=== PATIENT | female | born 1930 | race Caucasian/White ===

== ENCOUNTER 2017-04-29 09:12 | Inpatient (IN) | payer OTHER, MEDICARE ==
[~2017-04-29] VITALS: Ht 167.6 cm; Wt 57.8 kg
[2017-04-29 09:48] LABS: BASOPHIL COUNT 0.1 K/uL (0-0.1); EOSINOPHIL (%) 1.5 % (0-5); EOSINOPHIL COUNT 0.1 K/uL (0-0.3); HEMATOCRIT 38.7 % (36.0-46.0); IMMATURE GRANULOCYTE (%) 0.5 % (0.0-0.7); IMMATURE GRANULOCYTE COUNT 0.1 K/uL; INSTRUMENT ABS NEUTROPHIL CT 6.7 K/uL; LYMPHOCYTE COUNT 1.3 K/uL (1.0-2.8); MCH 31.1 PG (29.0-34.0); MCHC 33.1 G/DL (30.0-36.0); MCV 94.2 FL (83-99); MEAN PLAT.VOLUME 9.4 uM^3 (9.5-12.4); MONOCYTE (%) 9.8 % (3-12); MONOCYTE COUNT 0.9 K/uL (0-0.8); NEUTROPHIL (%) 73.1 % (45-76); NEUTROPHIL COUNT 6.7 K/uL (1.8-6.4); PLATELET COUNT 246 K/uL (156-360); RBC DIS.WIDTH-SD 41.9 % (39-53); RED BLOOD COUNT 4.11 M/uL (3.80-5.20); WHITE BLOOD COUNT 9.2 K/uL (4.1-10.2)
[2017-04-29 10:00] LABS: CHLORIDE 104 mEq/L (99-109); POTASSIUM 3.7 mEq/L (3.7-5.4); SODIUM 136 mEq/L (136-147)
[2017-04-29 10:02] LABS: GLUCOSE 111 mg/dL (70-99)
[2017-04-29 10:03] LABS: ANION GAP 8 MEQ/L (2-14)
[2017-04-29 10:06] LABS: GFR ESTIMATE (CALCULATED) > 59 mL/min/; UREA NITROGEN (BUN) 11 mg/dL (9-23)
[2017-04-29 10:13] LABS: TROP-I INTERPRETATION NEGATIVE; TROPONIN-I < 0.01 ng/mL (0.0-0.30)
[2017-04-29] MEDS ORDERED: NOLVADEX20 MG PO (14:00)
[2017-04-29] MEDS ORDERED: COZAAR50 MG PO (14:01)
[2017-04-29] MEDS ORDERED: ZOCOR40 MG PO (14:01)
[2017-04-29] MEDS ORDERED: FOSAMAX70 MG PO (14:01)
[2017-04-29] MEDS ORDERED: VITAMIN D31000 UNI2 PO (14:02)
[2017-04-29] MEDS ORDERED: CALCIUM 600 +1 EA11 PO (14:02)
[2017-04-29] MEDS ORDERED: ALDACTONE25 MG PO (14:03)
[2017-04-29 14:26] VITALS: BP 138/63
[2017-04-29 19:24] VITALS: BP 126/60
[2017-04-29 19:47] LABS: MCH 31.8 PG (29.0-34.0); MCHC 33.4 G/DL (30.0-36.0); MCV 95.2 FL (83-99); MEAN PLAT.VOLUME 9.3 uM^3 (9.5-12.4); PLATELET COUNT 223 K/uL (156-360); RBC DIS.WIDTH-CV 12.1 % (11.8-14.6); RED BLOOD COUNT 3.36 M/uL (3.80-5.20); WHITE BLOOD COUNT 15.1 K/uL (4.1-10.2)
[2017-04-29 23:55] VITALS: BP 103/57
[2017-04-30 03:40] VITALS: BP 101/49
[2017-04-30 06:34] LABS: HEMATOCRIT 26.8 % (36.0-46.0); MCV 93.7 FL (83-99)
[2017-04-30 07:01] LABS: ANION GAP 6 MEQ/L (2-14); CHLORIDE 104 MEQ/L (99-109); GFR ESTIMATE (CALCULATED) > 59 mL/min/; GLUCOSE 103 mg/dL (70-99); SAMPLE HEMOLYSIS CHECK 0; SAMPLE ICTERIC CHECK 0; SAMPLE LIPEMIA CHECK 0; SODIUM 132 MEQ/L (136-147); UREA NITROGEN (BUN) 9 mg/dL (9-23)
[2017-04-30 07:52] VITALS: BP 123/56
[2017-04-30 11:54] VITALS: BP 121/60
[2017-04-30 16:17] VITALS: BP 101/70
[2017-04-30 20:28] VITALS: BP 120/57
[2017-05-01 00:21] VITALS: BP 112/53
[2017-05-01 03:39] VITALS: BP 115/51
[2017-05-01 06:49] LABS: HEMATOCRIT 26.5 % (36.0-46.0); MCH 31.8 PG (29.0-34.0); MCV 93.6 FL (83-99); PLATELET COUNT 194 K/uL (156-360); RBC DIS.WIDTH-CV 12.2 % (11.8-14.6); RBC DIS.WIDTH-SD 42.2 % (39-53); RED BLOOD COUNT 2.83 M/uL (3.80-5.20)
[2017-05-01 07:09] LABS: ANION GAP 7 MEQ/L (2-14); CHLORIDE 99 MEQ/L (99-109); GFR ESTIMATE (CALCULATED) > 59 mL/min/; GLUCOSE 102 mg/dL (70-99); POTASSIUM 3.7 MEQ/L (3.7-5.4); SAMPLE HEMOLYSIS CHECK 0; SAMPLE ICTERIC CHECK 0; SAMPLE LIPEMIA CHECK 0; SODIUM 130 MEQ/L (136-147); UREA NITROGEN (BUN) 7 mg/dL (9-23)
[2017-05-01 07:38] VITALS: BP 119/58
[2017-05-01] MEDS ORDERED: THERAGRAN1 TABLET PO (08:55)
[2017-05-01] MEDS ORDERED: HYDROCODON-ACE1 EAC7 PO (09:03)
[2017-05-01] MEDS ORDERED: PRAVACHOL80 MG PO (13:36)
[2017-05-01] MEDS ORDERED: SENNA-DOCUSATE1 EAC1 PO (13:38)
[2017-05-01] MEDS ORDERED: LOVENOX40 MG/0.4 SC (13:39)
[2017-05-01] MEDS ORDERED: PERCOCET 10/1 TABLET PO (13:40)
== END 2017-05-01 11:30 | DRG 481 ==
LOC: EME 09:12 → 3EAST 13:25 → EDOF 13:25 → ENRESERV 13:38 → 3EAST 14:07
PROVIDERS: Emergency Medicine; Hospitalist; Orthopaedic Surgery
PROC: 0QS736Z Reposition Left Upper Femur with Intramedullary Internal Fixation Device, Percutaneous Approach (ICD-10-PCS; principal; 2017-04-29)
DX: S72.142A Displaced intertrochanteric fracture of left femur, initial encounter for closed fracture (principal); E87.2 Acidosis; E86.0 Dehydration; C50.919 Malignant neoplasm of unspecified site of unspecified female breast; E78.5 Hyperlipidemia, unspecified; I10 Essential (primary) hypertension; D72.829 Elevated white blood cell count, unspecified; W01.0XXA Fall on same level from slipping, tripping and stumbling without subsequent striking against object, initial encounter; Y93.01 Activity, walking, marching and hiking; Y92.014 Private driveway to single-family (private) house as the place of occurrence of the external cause; M81.0 Age-related osteoporosis without current pathological fracture; R09.89 Other specified symptoms and signs involving the circulatory and respiratory systems; E78.00 Pure hypercholesterolemia, unspecified; S00.81XA Abrasion of other part of head, initial encounter; S80.211A Abrasion, right knee, initial encounter; Z79.810 Long term (current) use of selective estrogen receptor modulators (SERMs); Z79.83 Long term (current) use of bisphosphonates; Z79.899 Other long term (current) drug therapy
CPT/HCPCS: 71010; 73502; 73552; 76000; 80048; 83605; 83880; 84484; 85014; 85018; 85025; 85027; 93005; 99281; 99285; C1713; J0690; J1650; J2270; J2405; J3010; J7030

== ENCOUNTER 2017-05-01 11:34 | Inpatient (IN) | payer OTHER, MEDICARE ==
[~2017-05-01] VITALS: Ht 165.1 cm; Wt 59.2 kg
[~2017-05-01 11:34] MED LIST: ALDACTONE25 MG PO; CALCIUM 600 +1 EA11 PO; COZAAR50 MG PO; FOSAMAX70 MG PO; HYDROCODON-ACE1 EAC7 PO; NOLVADEX20 MG PO; THERAGRAN1 TABLET PO; VITAMIN D31000 UNI2 PO; ZOCOR40 MG PO
[2017-05-01 11:53] VITALS: BP 128/66
[2017-05-01] MEDS ORDERED: PRAVACHOL80 MG PO (13:36)
[2017-05-01] MEDS ORDERED: SENNA-DOCUSATE1 EAC1 PO (13:38)
[2017-05-01] MEDS ORDERED: LOVENOX40 MG/0.4 SC (13:39)
[2017-05-01] MEDS ORDERED: PERCOCET 10/1 TABLET PO (13:40)
[2017-05-01 15:04] VITALS: BP 126/57
[2017-05-02 04:53] VITALS: BP 122/56
[2017-05-02 08:53] LABS: HEMATOCRIT 25.6 % (36.0-46.0); MCH 31.8 PG (29.0-34.0); MCV 93.4 FL (83-99); MEAN PLAT.VOLUME 9.4 uM^3 (9.5-12.4); PLATELET COUNT 211 K/uL (156-360); RBC DIS.WIDTH-CV 12.3 % (11.8-14.6); RBC DIS.WIDTH-SD 41.9 % (39-53); RED BLOOD COUNT 2.74 M/uL (3.80-5.20); WHITE BLOOD COUNT 19.4 K/uL (4.1-10.2)
[2017-05-02 09:20] LABS: ALKALINE PHOSPHATASE 39 IU/L (3-129); ANION GAP 6 MEQ/L (2-14); CHLORIDE 95 MEQ/L (99-109); GFR ESTIMATE (CALCULATED) > 59 mL/min/; GLUCOSE 153 mg/dL (70-99); POTASSIUM 3.8 MEQ/L (3.7-5.4); SAMPLE HEMOLYSIS CHECK 0; SAMPLE ICTERIC CHECK 0; SAMPLE LIPEMIA CHECK 0; SODIUM 126 MEQ/L (136-147); UREA NITROGEN (BUN) 10 mg/dL (9-23)
[2017-05-02 15:06] VITALS: BP 116/52
[2017-05-02 15:56] VITALS: BP 116/52
[2017-05-03 04:54] LABS: EOSINOPHIL COUNT 0.2 K/uL (0-0.3); HEMATOCRIT 22.7 % (36.0-46.0); IMMATURE GRANULOCYTE (%) 0.7 % (0.0-0.7); IMMATURE GRANULOCYTE COUNT 0.1 K/uL; INSTRUMENT ABS NEUTROPHIL CT 11.5 K/uL; LYMPHOCYTE COUNT 1.3 K/uL (1.0-2.8); MCH 31.3 PG (29.0-34.0); MCHC 34.4 G/DL (30.0-36.0); MCV 91.2 FL (83-99); MEAN PLAT.VOLUME 9.8 uM^3 (9.5-12.4); MONOCYTE (%) 10.1 % (3-12); MONOCYTE COUNT 1.5 K/uL (0-0.8); NEUTROPHIL COUNT 11.5 K/uL (1.8-6.4); PLATELET COUNT 224 K/uL (156-360); RBC DIS.WIDTH-CV 12.2 % (11.8-14.6); RED BLOOD COUNT 2.49 M/uL (3.80-5.20); WHITE BLOOD COUNT 14.6 K/uL (4.1-10.2)
[2017-05-03 05:09] LABS: CHLORIDE 100 mEq/L (99-109); POTASSIUM 3.9 mEq/L (3.7-5.4); SODIUM 132 mEq/L (136-147)
[2017-05-03 05:13] LABS: ANION GAP 7 MEQ/L (2-14)
[2017-05-03 05:15] LABS: GFR ESTIMATE (CALCULATED) > 59 mL/min/
[2017-05-03 05:16] LABS: GLUCOSE 110 mg/dL (70-99); UREA NITROGEN (BUN) 11 mg/dL (9-23)
[2017-05-03 05:18] VITALS: BP 133/63
[2017-05-03 11:16] LABS: HPCA INDEX 0.06
[2017-05-03 15:22] VITALS: BP 120/57
[2017-05-04 04:59] VITALS: BP 122/56
[2017-05-04 09:54] LABS: HEMATOCRIT 24.8 % (36.0-46.0); MCH 33.1 PG (29.0-34.0); MCHC 34.7 G/DL (30.0-36.0); MEAN PLAT.VOLUME 9.1 uM^3 (9.5-12.4); PLATELET COUNT 286 K/uL (156-360); RBC DIS.WIDTH-CV 12.8 % (11.8-14.6); RBC DIS.WIDTH-SD 43.8 % (39-53)
[2017-05-04 09:55] LABS: MCV 95.4 FL (83-99)
[2017-05-04 10:09] LABS: ANION GAP 7 MEQ/L (2-14); CHLORIDE 101 MEQ/L (99-109); GFR ESTIMATE (CALCULATED) > 59 mL/min/; GLUCOSE 152 mg/dL (70-99); POTASSIUM 3.3 MEQ/L (3.7-5.4); SAMPLE HEMOLYSIS CHECK 0; SAMPLE ICTERIC CHECK 0; SAMPLE LIPEMIA CHECK 0; SODIUM 133 MEQ/L (136-147); UREA NITROGEN (BUN) 9 mg/dL (9-23)
[2017-05-04 15:32] VITALS: BP 110/56
[2017-05-05 05:09] VITALS: BP 118/56
[2017-05-05 15:27] VITALS: BP 134/62
[2017-05-06 05:05] VITALS: BP 137/60
[2017-05-06 06:33] LABS: ANION GAP 7 MEQ/L (2-14); CHLORIDE 105 MEQ/L (99-109); GFR ESTIMATE (CALCULATED) > 59 mL/min/; SAMPLE HEMOLYSIS CHECK 0; SAMPLE ICTERIC CHECK 0; SAMPLE LIPEMIA CHECK 0; SODIUM 137 MEQ/L (136-147); UREA NITROGEN (BUN) 8 mg/dL (9-23)
[2017-05-06 06:41] LABS: GLUCOSE 106 mg/dL (70-99); POTASSIUM 4.2 MEQ/L (3.7-5.4)
[2017-05-06 15:57] VITALS: BP 140/60
[2017-05-07 06:16] VITALS: BP 145/63
[2017-05-07 15:19] VITALS: BP 108/54
[2017-05-08 05:39] VITALS: BP 147/67
[2017-05-08 15:31] VITALS: BP 127/71
[2017-05-09 04:13] VITALS: BP 134/63
[2017-05-09 06:01] LABS: HEMATOCRIT 25.8 % (36.0-46.0); MCHC 32.9 G/DL (30.0-36.0); MEAN PLAT.VOLUME 8.5 uM^3 (9.5-12.4); PLATELET COUNT 326 K/uL (156-360); RBC DIS.WIDTH-CV 14.4 % (11.8-14.6); RED BLOOD COUNT 2.66 M/uL (3.80-5.20); WHITE BLOOD COUNT 10.4 K/uL (4.1-10.2)
[2017-05-09 06:31] LABS: ALKALINE PHOSPHATASE 49 IU/L (3-129); ANION GAP 8 MEQ/L (2-14); CHLORIDE 102 MEQ/L (99-109); GFR ESTIMATE (CALCULATED) > 59 mL/min/; GLUCOSE 107 mg/dL (70-99); POTASSIUM 4.1 MEQ/L (3.7-5.4); SAMPLE HEMOLYSIS CHECK 0; SAMPLE ICTERIC CHECK 0; SAMPLE LIPEMIA CHECK 0; SODIUM 137 MEQ/L (136-147); TOTAL BILIRUBIN 1.1 MG/DL (0.0-1.0); UREA NITROGEN (BUN) 10 mg/dL (9-23)
[2017-05-09 16:12] VITALS: BP 134/60
[2017-05-10 05:46] VITALS: BP 134/55
[2017-05-10] MEDS ORDERED: HYDROCODON-ACE1 EAC7 PO ×2 (12:37→12:51)
[2017-05-10] MEDS ORDERED: FERROUS SULFAT325 MG PO (12:37)
[2017-05-10] MEDS ORDERED: LOVENOX40 MG/0.4 SC (12:37)
== END 2017-05-10 13:34 | disposition home health service (06) | DRG 560 ==
LOC: 3WEST 11:34 → ENPENDDIS 05-10 → 3WEST 05-10 13:34
PROVIDERS: Internal Medicine Nephrology; Physical Medicine & Rehabilitation Pain Medicine
PROC: F07M0ZZ Range of Motion and Joint Mobility Treatment of Musculoskeletal System - Whole Body (ICD-10-PCS; principal; 2017-05-01)
DX: S72.142D Displaced intertrochanteric fracture of left femur, subsequent encounter for closed fracture with routine healing (principal); W19.XXXD Unspecified fall, subsequent encounter; R26.2 Difficulty in walking, not elsewhere classified; R26.9 Unspecified abnormalities of gait and mobility; G89.18 Other acute postprocedural pain; D62 Acute posthemorrhagic anemia; E83.51 Hypocalcemia; E87.1 Hypo-osmolality and hyponatremia; E87.6 Hypokalemia; E86.0 Dehydration; D72.829 Elevated white blood cell count, unspecified; E77.8 Other disorders of glycoprotein metabolism; I10 Essential (primary) hypertension; R63.1 Polydipsia; H91.90 Unspecified hearing loss, unspecified ear; M81.0 Age-related osteoporosis without current pathological fracture; F41.9 Anxiety disorder, unspecified; Z79.810 Long term (current) use of selective estrogen receptor modulators (SERMs); Z85.3 Personal history of malignant neoplasm of breast
CPT/HCPCS: 80048; 80053; 82533 91; 83935; 84100; 84300; 84443; 85025; 85027; 86803; 97110 GO; 97530 GP; J1650; J7030